=== PATIENT | male | born 2005 | race Two or more races ===

== ENCOUNTER 2024-12-18 17:47 | Emergency (ER) | payer MEDICAID, SELFPAY ==
[2024-12-18 17:48] VITALS: BMI 36.5
[2024-12-18 18:56] VITALS: BP 144/92; PULSE 81; RESP 19; TEMP 36.8; O2SAT 100
--- NOTE | 2024-12-18 19:21 | PD.EDWOUND ---
ED Wound/Laceration-RME/HPI General Chief Complaint: Wound Recheck / Suture Removal Stated Complaint: Staple removal Time Seen by Provider: 12/18/24 18:22 Arrival date/time: 12/18/24 17:47 19-year-old male reports for staple removals from the scalp. Patient states he has been keeping the area clean and dry no purulent discharge no fever no headache no dizziness no blurred vision no ringing in ears. Limitations: no limitations Related Data Previous Rx's ?Medication ?Instructions ?Recorded epinephrine 0.3 mg/0.3 mL See Rx Instructions .Route 04/10/21 injection, auto-injector .COMPLEX #1 ea loratadine 10 mg tablet 10 mg PO QDAY #30 tabs 08/29/22 promethazine-DM 6.25 mg-15 mg/5 mL 5 ml PO Q6H PRN cough #200 mL 08/29/22 oral syrup albuterol sulfate 90 mcg/actuation 1 puff inhalation Q6H PRN 09/04/22 aerosol inhaler (Ventolin HFA) shortness of breath or wheezing #6.7 grams albuterol sulfate 2.5 mg/3 mL 2.5 mg (3 mL) inhalation QID PRN 09/12/22 (0.083 %) solution for nebulization shortness of breath or wheezing #90 mL albuterol sulfate 90 mcg/actuation 2 puff inhalation Q6H PRN 09/12/22 aerosol inhaler shortness of breath or wheezing #8.5 grams diphenhydramine HCl 25 mg capsule 25 mg PO TID PRN allergic reaction 06/29/23 (Allergy Relief (diphenhydramine)) #30 caps epinephrine 0.3 mg/0.3 mL 0.3 ml subcut QDAY PRN 06/29/23 injection, auto-injector (EpiPen hypersensitivity reaction #2 ea 2-Ebenezer) hydrocortisone 0.5 % topical cream 1 applic topical BID PRN itching 06/29/23 #28.4 grams Allergies Allergy/AdvReac Type Severity Reaction Status Date / Time bee venom protein (honey bee) Allergy Severe Swelling Verified 06/28/23 23:19 of the Eye Penicillins Allergy Severe HIVVES Verified 06/28/23 23:19 NSAIDS (Non-Steroidal AdvReac Severe DUE TO Verified 06/28/23 23:19 Anti-Inflamma KIDNEY PROBLEMS Review of Systems Constitutional Constitutional: Denies chills, Denies fever(s) and Denies headache(s) ENT Ears, Nose, Mouth, and Throat: Denies dizziness and Denies headache(s) Integumentary/Breasts Skin/Breast: Denies unusual bruising, Reports wounds and Reports other (No discharge) Neurologic Neurologic: Denies convulsions, Denies dizziness and Denies headache(s) Past Medical History Past Medical History CARDIAC: Negative Cardiac Disorders or Congestive Heart Failure RESPIRATORY: Positive Asthma; Negative Chronic Obstructive Pulmonary Disease (COPD) GENITOURINARY: Positive Genitourinary Disorders; Negative Renal Disease ENDOCRINE: Negative Diabetes Mellitus Type 1 or Diabetes Mellitus Type 2 HEMATOLOGIC: Negative Sickle Cell Disease Social History SMOKING STATUS: Never smoker ED Exam General Limitations: Present no limitations General appearance: Present alert and in no apparent distress Head Head exam: Present atraumatic Eye Eye exam: Present normal appearance, PERRL and EOMI ENT ENT exam: Present normal exam, normal oropharynx and mucous membranes moist Neurological Exam Neurological exam: Present alert, oriented X3 and CN II-XII intact Psychiatric Psychiatric exam: Present normal affect and normal mood Skin Skin exam: Present warm, dry, intact and normal color Course Quality Measures none Vital Signs Vital signs: Vital Signs Temperature 98.2 F 12/18/24 18:56 Pulse Rate 81 12/18/24 18:56 Respiratory Rate 19 12/18/24 18:56 Blood Pressure 144/92 H 12/18/24 18:56 Pulse Oximetry (%) 100 12/18/24 18:56 Oxygen Delivery Method Room Air 12/18/24 18:56 Wound / Laceration Patient data External records reviewed:: None Clinical information provided by:: patient Social determinants that could affect healthcare access:: none Patient has the following chronic illnesses:: none How is presenting disease/condition affected by chronic disease/condition?: no chronic disease Evaluation data The following diagnostics were reviewed and interpreted by me:: other (specify) (none) Lab and/or radiology exams considered but not ordered:: n/a Interpretation Summary: n/a Medications / Prescriptions Medications or Prescriptions considered but not ordered:: none Medication administrations:: none Consultations Consultation(s) initiated? (list below): No Diagnosis Wound Differential Diagnosis: laceration Most likely diagnosis given after review of the tests above:: Counter for suture removal Admission Indicated Admission indicated?: not indicated Admission Request Was there a request for admission?: No Disposition Plan Disposition Plan: Discharge Discharge Attestation Discharge Attestation: The patient and all family members were given an opportunity to ask questions and understood the discharge instructions. Discharge instructions specifically effects, indications for sooner follow up or return to the emergency department, and the expected course of current diagnosis. Patient condition: Stable Discharge Plan Plan Patient Disposition: HOME (Self Care) Prescriptions/Referrals Prescriptions/Med Rec: No Action epinephrine 0.3 mg/0.3 mL auto-injector See Rx Instructions .ROUTE .COMPLEX Qty: 1 0RF Rx Instructions: 0.3 mL subcutaneously x1 as needed for anaphylaxis promethazine-DM 6.25-15 mg/5 mL syrup 5 ml PO Q6H PRN (Reason: cough) Qty: 200 0RF loratadine 10 mg tablet 10 mg PO QDAY Qty: 30 0RF diphenhydramine HCl [Allergy Relief(diphenhydramin)] 25 mg capsule 25 mg PO TID PRN (Reason: allergic reaction) Qty: 30 0RF hydrocortisone 0.5 % cream 1 applic topical BID PRN (Reason: itching) Qty: 28.4 0RF epinephrine [EpiPen 2-Ebenezer] 0.3 mg/0.3 mL auto-injector 0.3 ml subcut QDAY PRN (Reason: hypersensitivity reaction) Qty: 2 0RF albuterol sulfate [Ventolin HFA] 90 mcg/actuation HFA aerosol inhaler 1 puff inhalation Q6H PRN (Reason: shortness of breath or wheezing) Qty: 6.7 0RF albuterol sulfate 90 mcg/actuation HFA aerosol inhaler 2 puff inhalation Q6H PRN (Reason: shortness of breath or wheezing) Qty: 8.5 0RF albuterol sulfate 2.5 mg /3 mL (0.083 %) solution for nebulization 2.5 mg inhalation QID PRN (Reason: shortness of breath or wheezing) Qty: 90 0RF Problem List Clinical Impression: Encounter for removal of farnaz Patient/Caregiver Discharge Instructions Discharge Activity: activity as tolerated Education Materials: ED Stitches/Staple Removal No ... Additional Instructions: Keep area clean and dry Print Language: [place] Stand Alone Forms: [facility] Award Info., Patient Portal Info Letter
== END 2024-12-18 19:40 | disposition home or self-care (01) ==
LOC: SERX 19:31
PROVIDERS: Emergency Provider Emergency Medicine
DX: Z48.02 Encounter for removal of sutures (principal)
CPT/HCPCS: 99281

== ENCOUNTER 2025-01-04 16:59 | Emergency (ER) | payer MEDICAID, SELFPAY ==
[2025-01-04 17:02] VITALS: BMI 36.5
[2025-01-04 17:55] VITALS: BP 142/75; PULSE 72; RESP 18; TEMP 36.9; O2SAT 99
--- NOTE | 2025-01-04 17:57 | XR_ITS ---
Examination: PA lateral chest 2 views TECHNIQUE: Upright PA lateral chest 2 views Exam date and time: January 04, 2025, 1829 hours Comparison January 18, 2023 INDICATIONS: Onset chest pain today. FINDINGS: Normal heart size No pneumonia or pulmonary edema. Intact osseous structures IMPRESSION: No active disease
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
== END 2025-01-04 21:23 | disposition home or self-care (01) ==
PROVIDERS: Emergency Provider Emergency Medicine
DX: S09.90XA Unspecified injury of head, initial encounter (principal); S19.9XXA Unspecified injury of neck, initial encounter; R07.9 Chest pain, unspecified; V89.2XXA Person injured in unspecified motor-vehicle accident, traffic, initial encounter
CPT/HCPCS: 70450; 71046; 72125; 99284

== ENCOUNTER 2025-01-31 10:05 | Emergency (ER) | payer MEDICAID, SELFPAY ==
[2025-01-31 10:14] VITALS: BP 150/83; PULSE 95; RESP 18; TEMP 36.9; O2SAT 98; BMI 37.5
--- NOTE | 2025-01-31 10:22 | XR_ITS ---
Examination: PA lateral chest 2 views TECHNIQUE: Upright PA lateral chest 2 views Exam date and time: January 31, 2025 1041 hours INDICATIONS: Congestion coughing beginning 2 days ago. FINDINGS: Normal heart size. Lungs are clear. The osseous structures are intact IMPRESSION: No active disease
[2025-01-31 11:15] LABS: Strep A Rapid Negative (Negative)
--- NOTE | 2025-01-31 11:15 | EDNOTE_ITS ---
Upper Respiratory Inf. RME/HPI General Chief Complaint: Flu Like Symptoms Stated Complaint: FLU LIKE SYMPTOMS X2 DAYS Time Seen by Provider: 01/31/25 10:20 Arrival date/time: 01/31/25 10:05 19-year-old male presents to the emergency department today for complaints of cough, congestion, sore throat nasal discharge ongoing x 2 days. Limitations: no limitations Related Data Previous Rx's ?Medication ?Instructions ?Recorded epinephrine 0.3 mg/0.3 mL See Rx Instructions .Route 0 04/10/21 injection, auto-injector .COMPLEX #1 ea loratadine 10 mg tablet 10 mg PO QDAY #30 tabs 08/29 promethazine-DM 6.25 mg-15 mg/5 mL 5 ml PO Q6H PRN cou gh #200 mL 08/29/22 oral syrup albuterol sulfate 90 mcg/actuation 1 puff inhalation Q 6H PRN 09/04/22 aerosol inhaler (Ventolin HFA) shortness of breath or wheezing #6.7 grams albuterol sulfate 2.5 mg/3 mL 2.5 mg (3 mL) inhalation QID PRN 09/12/22 (0.083 %) solution for nebulization shortness of breat h or wheezing #90 mL albuterol sulfate 90 mcg/actuation 2 puff inhalation Q 6H PRN 09/12/22 aerosol inhaler shortness of breath or wheez ing #8.5 grams diphenhydramine HCl 25 mg capsule 25 mg PO TID PRN all ergic reaction 06/29/23 (Allergy Relief (diphenhydramine)) #30 caps epinephrine 0.3 mg/0.3 mL 0.3 ml subcut QDAY PRN 06/29 injection, auto-injector (EpiPen hypersensitivity reac tion #2 ea 2-Ebenezer) hydrocortisone 0.5 % topical cream 1 applic topical BI D PRN itching 06/29/23 #28.4 grams albuterol sulfate 90 mcg/actuation 2 puff inhalation Q 6H PRN 01/31/25 aerosol inhaler (Ventolin HFA) shortness of breath or wheezing #8.5 grams benzonatate 100 mg capsule 100 mg PO TID #14 caps 01/10 01/02 ibuprofen 600 mg tablet 600 mg PO Q6H #30 tabs 01/31 Allergies Allergy/AdvReac Type Severity Reaction Status Date / Time bee venom protein (honey bee) Allergy Severe Swelling Verified 01/04/25 17:08 of the Eye Penicillins Allergy Severe HIVVES Verified 01/04/25 17:08 NSAIDS (Non-Steroidal AdvReac Severe DUE TO Verified 01/04/25 17:08 Anti-Inflamma KIDNEY PROBLEMS Review of Systems Review of Systems Systems Reviewed: All systems reviewed, normal except as documented Constitutional Constitutional: Reports system reviewed and no additional complaints, except as documented, Reports body ache(s), Denies fever(s) and Reports headache(s) Eyes Eyes: Reports system reviewed and no additional complaints, except as documented and Denies blurry vision ENT Ears, Nose, Mouth, and Throat: Reports system reviewed and no additional complaints, except as documented, Reports headache(s), Reports nasal congestion and Reports nasal discharge Cardiovascular Cardiovascular: Reports system reviewed and no additional complaints, except as documented, Denies chest pain and Denies dyspnea Respiratory Respiratory: Reports system reviewed and no additional complaints, except as documented, Denies chest congestion, Denies cough and Denies dyspnea Gastrointestinal Gastrointestinal: Reports system reviewed and no additional complaints, except as documented and Denies abdominal pain Integumentary/Breasts Skin/Breast: Reports system reviewed and no additional complaints, except as documented and Denies rash Neurologic Neurologic: Reports system reviewed and no additional complaints, except as documented, Reports as per HPI and Reports headache(s) Past Medical History Past Medical History CARDIAC: Negative Cardiac Disorders or Congestive Heart Failure RESPIRATORY: Positive Asthma; Negative Chronic Obstructive Pulmonary Disease (COPD) GENITOURINARY: Positive Genitourinary Disorders; Negative Renal Disease ENDOCRINE: Negative Diabetes Mellitus Type 1 or Diabetes Mellitus Type 2 HEMATOLOGIC: Negative Sickle Cell Disease Social History SMOKING STATUS: Never smoker ED Exam General Limitations: Present no limitations General appearance: Present alert and in no apparent distress Head Head exam: Present atraumatic Eye Eye exam: Present normal appearance, PERRL and EOMI ENT ENT exam: Present normal exam, normal oropharynx and mucous membranes moist Neck Neck exam: Present normal inspection, full ROM and trachea midline Chest Chest inspection: Present normal inspection and symmetric chest wall rise Respiratory Respiratory exam: Present normal lung sounds bilaterally; Absent respiratory distress, wheezes, stridor, accessory muscle use or prolonged expiratory phase Cardiovascular Cardiovascular exam: Present regular rate, normal rhythm and normal heart sounds; Absent bradycardia, tachycardia or irregular rhythm Abdominal Exam Abdominal exam: Present soft and normal bowel sounds; Absent distention, tenderness or guarding Extremities Exam Extremities exam: Present normal inspection and full ROM Back Exam Back exam: Present normal inspection and full ROM Neurological Exam Neurological exam: Present alert, oriented X3, CN II-XII intact, normal gait and reflexes normal; Absent motor sensory deficit Psychiatric Psychiatric exam: Present normal affect and normal mood Skin Skin exam: Present warm, dry, intact and normal color; Absent rash Course Quality Measures none Orders Category Date Time Status Bedside COVID-19 Antigen Test NOW Care 01/31/25 10:22 Active Bedside Influenza A&B Antigen Test NOW Care 01/31/25 10:22 Completed XR chest 2V Stat Exams 01/31/25 10:22 Completed Strep A Rapid Stat Lab 01/31/25 10:43 Completed Vital Signs Vital signs: Vital Signs Temperature 98.5 F 01/31/25 10:14 Pulse Rate 95 01/31/25 10:14 Respiratory Rate 18 01/31/25 10:14 Blood Pressure 150/83 H 01/31/25 10:14 Pulse Oximetry (%) 98 01/31/25 10:14 Oxygen Delivery Method Room Air 01/31/25 10:14 O2 saturation 98% room air within normal limits Upper Respiratory Infection MDM Narrative MDM Narrative:: 19-year-old male presents to the emergency department today for complaints of cough, congestion, sore throat nasal discharge ongoing x 2 days. On exam patient well-appearing patient does not appear ill or toxic in no acute distress patient is no difficulty breathing no retractions Lungs are clear to auscultation Patient has mild tonsillar erythema no exudate no trismus no hoarseness of voice Chest x-ray obtained per my interpretation no acute pneumonic infiltrates noted Patient checked for flu COVID and strep all of which are negative Symptoms highly consistent with viral illness Patient discharged home in no distress to follow-up with primary care doctor in the next 24 to 48 hours and for any worsening symptoms to return to the ER immediately Patient data External records reviewed:: [facility] previous records Clinical information provided by:: patient Social determinants that could affect healthcare access:: none Patient has the following chronic illnesses:: None How is presenting disease/condition affected by chronic disease/condition?: no chronic disease Evaluation data The following diagnostics were reviewed and interpreted by me:: lab results and radiology exam(s) Lab and/or radiology exams considered but not ordered:: Labs and radiology obtained Interpretation Summary: Reviewed by me Medications / Prescriptions Medications or Prescriptions considered but not ordered:: Given Medication administrations:: Given Consultations Consultation(s) initiated? (list below): No Diagnosis Upper Respiratory Differential Diagnosis: upper respiratory infection, sinusitis, viral infection, bronchitis and influenza Most likely diagnosis given after review of the tests above:: URI Admission Indicated Admission indicated?: not indicated Admission Request Was there a request for admission?: No Disposition Plan Disposition Plan: Discharge Discharge Attestation Discharge Attestation: The patient and all family members were given an opportunity to ask questions and understood the discharge instructions. Discharge instructions specifically effects, indications for sooner follow up or return to the emergency department, and the expected course of current diagnosis. Patient condition: Stable Discharge Plan Plan Patient Disposition: HOME (Self Care) Disposition Comment: Stable Prescriptions/Referrals Prescriptions/Med Rec: New benzonatate 100 mg capsule 100 mg PO TID Qty: 14 0RF ibuprofen 600 mg tablet 600 mg PO Q6H Qty: 30 0RF albuterol sulfate [Ventolin HFA] 90 mcg/actuation HFA aerosol inhaler 2 puff inhalation Q6H PRN (Reason: shortness of breath or wheezing) Qty: 8.5 0RF No Action epinephrine 0.3 mg/0.3 mL auto-injector See Rx Instructions .ROUTE .COMPLEX Qty: 1 0RF Rx Instructions: 0.3 mL subcutaneously x1 as needed for anaphylaxis promethazine-DM 6.25-15 mg/5 mL syrup 5 ml PO Q6H PRN (Reason: cough) Qty: 200 0RF loratadine 10 mg tablet 10 mg PO QDAY Qty: 30 0RF diphenhydramine HCl [Allergy Relief(diphenhydramin)] 25 mg capsule 25 mg PO TID PRN (Reason: allergic reaction) Qty: 30 0RF hydrocortisone 0.5 % cream 1 applic topical BID PRN (Reason: itching) Qty: 28.4 0RF epinephrine [EpiPen 2-Ebenezer] 0.3 mg/0.3 mL auto-injector 0.3 ml subcut QDAY PRN (Reason: hypersensitivity reaction) Qty: 2 0RF albuterol sulfate [Ventolin HFA] 90 mcg/actuation HFA aerosol inhaler 1 puff inhalation Q6H PRN (Reason: shortness of breath or wheezing) Qty: 6.7 0RF albuterol sulfate 90 mcg/actuation HFA aerosol inhaler 2 puff inhalation Q6H PRN (Reason: shortness of breath or wheezing) Qty: 8.5 0RF albuterol sulfate 2.5 mg /3 mL (0.083 %) solution for nebulization 2.5 mg inhalation QID PRN (Reason: shortness of breath or wheezing) Qty: 90 0RF Referrals: Jennifer Kinsey PA-C [Primary Care Provider] - 02/02/25 Problem List Clinical Impression: Upper respiratory infection Patient/Caregiver Discharge Instructions Education Materials: ED URI, Viral, No Abx (Adult) Additional Instructions: Please follow up with your primary care doctor in the next 24-48hrs for any worsening symptoms return here immediately Print Language: Iranian Stand Alone Forms: [employer] Award Info., Work/School Release, Patient Portal Info Letter ERON/NIC Supervising Physician PA/NIC Supervising Physician: Dr navarro
== END 2025-01-31 11:45 | disposition home or self-care (01) ==
PROVIDERS: Nurse Practitioner Primary Care; Emergency Provider Emergency Medicine; PCP Specialist
DX: J06.9 Acute upper respiratory infection, unspecified (principal)
CPT/HCPCS: 71046; 87400; 87651; 87811; 99283

== ENCOUNTER 2025-02-26 13:09 | Emergency (ER) | payer MEDICAID, SELFPAY ==
[2025-02-26 13:10] VITALS: BMI 34.9
[2025-02-26 13:16] VITALS: BP 134/78; PULSE 69; RESP 18; TEMP 37; O2SAT 98
--- NOTE | 2025-02-26 13:22 | EKG_ITS ---
[facility] Test Date: 2025-02-26 Pat Name: MARIA INES TRINIDAD Department: Room: - Gender: Male Certified Coding Specialist: : 2005 Requested By: London Alves Order Number: [id number] Reading MD: London Alves Measurements Intervals [place] Rate: 68 P: 59 KS: 153 QRS: -9 QRSD: 97 T: 12 QT: 352 QTc: 375 Interpretive Statements SINUS RHYTHM WITH SINUS ARRHYTHMIA INCOMPLETE RIGHT BUNDLE BRANCH BLOCK [90+ ms QRS DURATION, TERMINAL R IN V1/V2, 40+ ms S IN I/aVL/V4/V5/V6] VOLTAGE CRITERIA FOR LVH [MEETS CRITERIA IN ONE OF: R(aVL), S(V1), R(V5), R(V5/V6)+S(V1)] No previous ECG available for comparison /store/S0/[id number].pdf
--- NOTE | 2025-02-26 13:23 | PD.EDRME ---
Rapid Medical Screening Exam RME Arrival date/time: 02/26/25 13:09 19-year-old male with no known medical history presents to the emergency room with a chief complaint of a headache, dizziness and lightheadedness x 2 days. I have greeted and performed a focused initial assessment of this patient. A comprehensive ED assessment and evaluation of the patient, analysis of all test results, and completion of the medical decision making process will be conducted by additional ED providers. Chief Complaint: Dizziness Time Seen by Provider: 02/26/25 13:16 Vital signs: Vital Signs Temperature 98.6 F 02/26/25 13:16 Pulse Rate 69 02/26/25 13:16 Respiratory Rate 18 02/26/25 13:16 Blood Pressure 134/78 H 02/26/25 13:16 Pulse Oximetry (%) 98 02/26/25 13:16 Oxygen Delivery Method Room Air 02/26/25 13:16 Vital signs reviewed by provider: Yes
[2025-02-26] MEDS: MECLIZINE HCL 25 MG TABLET 50 MG PO (13:28)
[2025-02-26 13:44] LABS: Basophils # (Auto) 0.1 Thou/mm3 (0.0-0.2); Basophils % (Auto) 1 % (0-2.5); Eosinophils # (Auto) 0.3 Thou/mm3 (0.0-0.5); Eosinophils % (Auto) 3 % (0-10); Hematocrit 44.1 % (41.0-53.0); Hemoglobin 15.9 g/dL (13.5-16.0); Immature Granulocytes % (Auto) 1 % (0-0); Immature Granulocytes Auto 0.14 Thou/mm3 (0.00-0.00); Lymphocytes # (Auto) 3.1 Thou/mm3 (1.0-4.8); Lymphocytes % (Auto) 29 % (10-50); Mean Corpuscular HGB Conc 36.1 g/dl (31.0-37.0); Mean Corpuscular Hemoglobin 29.8 pg (25.0-35.0); Mean Corpuscular Volume 83 fL (80-100); Monocytes # (Auto) 0.9 Thou/mm3 (0.0-0.8); Monocytes % (Auto) 8 % (0-12); Neutrophils # (Auto) 6.2 Thou/mm3 (1.8-7.7); Neutrophils % (Auto) 58 % (37-80); Nucleated Red Blood Cell % 0 /100 WBC (0); Platelet Count 332 Thou/mm3 (140-440); RDW Standard Deviation 37.3 fL (35.1-43.9); Red Blood Count 5.34 Miln/mm3 (4.50-5.90); White Blood Count 10.7 Thou/mm3 (4.5-11.0)
[2025-02-26 14:07] LABS: Alanine Aminotransferase 27 U/L (10-49); Albumin/Globulin Ratio 1.9 (1.2-2.2); Alcohol, Blood Medical < 3.0 mg/dL (0-10.0); Alkaline Phosphatase 116 U/L (46-116); Anion Gap 7 (7-16); Aspartate Amino Transferase 22 U/L (0-34); BUN/Creatinine Ratio 15 Ratio (12-20); Bilirubin,Total 0.3 mg/dL (0.3-1.2); Blood Urea Nitrogen 15 mg/dL (9-23); Calcium 9.5 mg/dL (8.3-10.6); Calcium (Corrected) 9.5 mg/dL (8.5-10.1); Carbon Dioxide 27.3 mMol/L (20.0-31.0); Chloride 101 mMol/L (98-107); Globulin 2.7 gm/dL (2.3-3.5); Glucose 93 mg/dL (74-106); Osmolality,Calculated 270 (275-295); Potassium 4.4 mMol/L (3.4-5.1); Sodium 135 mMol/L (136-145); Total Protein 7.7 gm/dL (5.7-8.2); Troponin I < 0.002 ng/mL (0.0-0.045); eGFR > 60 See Note
[2025-02-26 14:31] LABS: Collection Type, Urine Clean Catch; RBC,Urine 0 /hpf (0-3); Squamous Epithelial Cell,Urine 0 /hpf (0-5)
[2025-02-26 14:52] LABS: Bilirubin,Urine Negative (Negative); Blood,Urine Negative (Negative); Clarity,Urine Clear (Clear/Hazy); Color,Urine Yellow (Lt Yel-Yel); Glucose, Urine Negative (Negative); Ketones,Urine Negative (Negative); Leukocyte Esterase,Urine Negative (Negative); Nitrite,Urine Negative (Negative); Protein,Urine Negative (Neg - Trace); Specific Gravity,Urine 1.028 (1.001-1.035); Urobilinogen,Urine Negative mg/dL (0.0-1.0); WBC,Urine < 1 /hpf (0-5)
[2025-02-26 14:56] LABS: Amphetamine/Methamp Scrn,U Negative (Negative); Barbiturate Screen,Urine Negative (Negative); Benzodiazepines Screen,Urine Negative (Negative); Benzoylecgonine Screen, Ur Negative (Negative); Fentanyl Screen,Urine Negative (Negative); Opiate Screen,Urine Negative (Negative); THC Screen,Urine Negative (Negative)
--- NOTE | 2025-02-26 16:29 | PC.NURSE ---
PT REQUESTING TO LEAVE AMA; PT MADE AWARE THAT PT ASSIGNED TO MAIN ED AND BED IS PENDING AT THIS TIME; PER PT, NO, 'I CAN'T. I DON'T WANT TO WAIT. I WANT TO EAT. THIS RN OFFERED FOOD FOR PT ENCOURAGE PT TO STAY; PT DECLINED AND STATED, NO, I WANNA LEAVE. THIS RN EXPLAINED THE RISKS OF LEAVING AMA; PT SIGNED AMA FORM. PT LEFT AGAINST MEDICAL ADVICE AT THIS TIME.
== END 2025-02-26 16:35 | disposition left against medical advice (07) ==
LOC: SERX 14:49
PROVIDERS: Nurse Practitioner Family; Emergency Provider Emergency Medicine; PCP Specialist
DX: R42 Dizziness and giddiness (principal); R51.9 Headache, unspecified; I49.8 Other specified cardiac arrhythmias; I45.10 Unspecified right bundle-branch block
CPT/HCPCS: 36415; 80053; 80307; 80320; 81001; 84484; 85025; 87086; 93005; 99281; A9270; G0480

== ENCOUNTER 2025-05-24 12:35 | Emergency (ER) | payer MEDICAID, SELFPAY ==
[2025-05-24 13:13] VITALS: BP 125/76; PULSE 81; RESP 20; TEMP 36.8; O2SAT 98; BMI 35.5
--- NOTE | 2025-05-24 13:20 | EDNOTE_ITS ---
ED General RME/HPI General Chief complaint: Nausea/Vomiting/Diarrhea Stated complaint: Vomiting, lightheaded from propane leak Time Seen by Provider: 05/24/25 13:12 Arrival date/time: 05/24/25 12:35 20-year-old male presents the Emergency Department today stating was at work today patient reports he was exposed to some propane/propane leak patient reports he vomited x 1 and became lightheaded patient reports symptoms have resolved. Patient reports no chest pain or shortness of breath and at no point has he had any chest pain or shortness of breath Limitations: no limitations Related Data Previous Rx's ?Medication ?Instructions ?Recorded epinephrine 0.3 mg/0.3 mL See Rx Instructions .Route 0 04/10/21 injection, auto-injector .COMPLEX #1 ea loratadine 10 mg tablet 10 mg PO QDAY #30 tabs 08/29 promethazine-DM 6.25 mg-15 mg/5 mL 5 ml PO Q6H PRN cou gh #200 mL 08/29/22 oral syrup albuterol sulfate 90 mcg/actuation 1 puff inhalation Q 6H PRN 09/04/22 aerosol inhaler (Ventolin HFA) shortness of breath or wheezing #6.7 grams albuterol sulfate 2.5 mg/3 mL 2.5 mg (3 mL) inhalation QID PRN 09/12/22 (0.083 %) solution for nebulization shortness of breat h or wheezing #90 mL albuterol sulfate 90 mcg/actuation 2 puff inhalation Q 6H PRN 09/12/22 aerosol inhaler shortness of breath or wheez ing #8.5 grams diphenhydramine HCl 25 mg capsule 25 mg PO TID PRN all ergic reaction 06/29/23 (Allergy Relief (diphenhydramine)) #30 caps epinephrine 0.3 mg/0.3 mL 0.3 ml subcut QDAY PRN 06/29 injection, auto-injector (EpiPen hypersensitivity reac tion #2 ea 2-Ebenezer) hydrocortisone 0.5 % topical cream 1 applic topical BI D PRN itching 06/29/23 #28.4 grams albuterol sulfate 90 mcg/actuation 2 puff inhalation Q 6H PRN 01/31/25 aerosol inhaler (Ventolin HFA) shortness of breath or wheezing #8.5 grams benzonatate 100 mg capsule 100 mg PO TID #14 caps 01/10 01/02 ibuprofen 600 mg tablet 600 mg PO Q6H #30 tabs 01/31 Allergies Allergy/AdvReac Type Severity Reaction Status Date / Time bee venom protein (honey bee) Allergy Severe Swelling Verified 05/24/25 12:40 of the Eye Penicillins Allergy Severe HIVVES Verified 05/24/25 12:40 NSAIDS (Non-Steroidal AdvReac Severe DUE TO Verified 05/24/25 12:40 Anti-Inflamma KIDNEY PROBLEMS Review of Systems Review of Systems Systems Reviewed: All systems reviewed, normal except as documented Constitutional Constitutional: Reports system reviewed and no additional complaints, except as documented, Denies fever(s) and Denies headache(s) Eyes Eyes: Reports system reviewed and no additional complaints, except as documented and Denies blurry vision ENT Ears, Nose, Mouth, and Throat: Reports system reviewed and no additional complaints, except as documented, Denies headache(s), Denies nasal congestion and Denies nasal discharge Cardiovascular Cardiovascular: Reports system reviewed and no additional complaints, except as documented, Denies chest pain and Denies dyspnea Respiratory Respiratory: Reports system reviewed and no additional complaints, except as documented, Denies chest congestion, Denies cough and Denies dyspnea Gastrointestinal Gastrointestinal: Reports system reviewed and no additional complaints, except as documented, Denies abdominal pain, Reports nausea and Reports vomiting Integumentary/Breasts Skin/Breast: Reports system reviewed and no additional complaints, except as documented and Denies rash Neurologic Neurologic: Reports system reviewed and no additional complaints, except as documented, Reports as per HPI and Denies headache(s) Past Medical History Past Medical History CARDIAC: Negative Cardiac Disorders or Congestive Heart Failure RESPIRATORY: Positive Asthma; Negative Chronic Obstructive Pulmonary Disease (COPD) GENITOURINARY: Positive Genitourinary Disorders; Negative Renal Disease ENDOCRINE: Negative Diabetes Mellitus Type 1 or Diabetes Mellitus Type 2 HEMATOLOGIC: Negative Sickle Cell Disease Social History SMOKING STATUS: Former smoker ED Exam General Limitations: Present no limitations General appearance: Present alert and in no apparent distress Head Head exam: Present atraumatic Eye Eye exam: Present normal appearance, PERRL and EOMI ENT ENT exam: Present normal exam, normal oropharynx and mucous membranes moist Neck Neck exam: Present normal inspection, full ROM and trachea midline Chest Chest inspection: Present normal inspection and symmetric chest wall rise Respiratory Respiratory exam: Present normal lung sounds bilaterally Cardiovascular Cardiovascular exam: Present regular rate, normal rhythm and normal heart sounds Abdominal Exam Abdominal exam: Present soft and normal bowel sounds Extremities Exam Extremities exam: Present normal inspection and full ROM Back Exam Back exam: Present normal inspection and full ROM Neurological Exam Neurological exam: Present alert, oriented X3 and CN II-XII intact Psychiatric Psychiatric exam: Present normal affect and normal mood Skin Skin exam: Present warm, dry, intact and normal color Course Quality Measures none Vital Signs Vital signs: Vital Signs Temperature 98.2 F 05/24/25 13:13 Pulse Rate 81 05/24/25 13:13 Respiratory Rate 20 05/24/25 13:13 Blood Pressure 125/76 05/24/25 13:13 Pulse Oximetry (%) 98 05/24/25 13:13 Oxygen Delivery Method Room Air 05/24/25 13:13 O2 saturation 98% r.a wnl Discharge Plan Plan Patient Disposition: HOME (Self Care) Discharge Disposition comment: Stable Prescriptions/Referrals Prescriptions/Med Rec: No Action epinephrine 0.3 mg/0.3 mL auto-injector See Rx Instructions .ROUTE .COMPLEX Qty: 1 0RF Rx Instructions: 0.3 mL subcutaneously x1 as needed for anaphylaxis promethazine-DM 6.25-15 mg/5 mL syrup 5 ml PO Q6H PRN (Reason: cough) Qty: 200 0RF loratadine 10 mg tablet 10 mg PO QDAY Qty: 30 0RF diphenhydramine HCl [Allergy Relief(diphenhydramin)] 25 mg capsule 25 mg PO TID PRN (Reason: allergic reaction) Qty: 30 0RF hydrocortisone 0.5 % cream 1 applic topical BID PRN (Reason: itching) Qty: 28.4 0RF epinephrine [EpiPen 2-Ebenezer] 0.3 mg/0.3 mL auto-injector 0.3 ml subcut QDAY PRN (Reason: hypersensitivity reaction) Qty: 2 0RF albuterol sulfate [Ventolin HFA] 90 mcg/actuation HFA aerosol inhaler 1 puff inhalation Q6H PRN (Reason: shortness of breath or wheezing) Qty: 6.7 0RF albuterol sulfate 90 mcg/actuation HFA aerosol inhaler 2 puff inhalation Q6H PRN (Reason: shortness of breath or wheezing) Qty: 8.5 0RF albuterol sulfate 2.5 mg /3 mL (0.083 %) solution for nebulization 2.5 mg inhalation QID PRN (Reason: shortness of breath or wheezing) Qty: 90 0RF benzonatate 100 mg capsule 100 mg PO TID Qty: 14 0RF ibuprofen 600 mg tablet 600 mg PO Q6H Qty: 30 0RF albuterol sulfate [Ventolin HFA] 90 mcg/actuation HFA aerosol inhaler 2 puff inhalation Q6H PRN (Reason: shortness of breath or wheezing) Qty: 8.5 0RF Problem List Clinical Impression: Inhalation of gaseous substance Patient/Caregiver Discharge Instructions Education Materials: ED Chemical Inhalation Additional Instructions: Please follow up with your primary care doctor in the next 24-48hrs for any worsening symptoms return here immediately Print Language: Pakistani Stand Alone Forms: Marbella Award Info., Work/School Release, Patient Portal Info Letter PA/PENSION FUND MANAGER Supervising Physician PA/PENSION FUND MANAGER Supervising Physician: Dr. vincent [facility] Narrative MDM hospital course: 20-year-old male presents the Emergency Department today stating was at work today patient reports he was exposed to some propane/propane leak patient reports he vomited x 1 and became lightheaded patient reports symptoms have resolved. Patient reports no chest pain or shortness of breath and at no point has he had any chest pain or shortness of breath On exam patient well-appearing patient does not appear ill or toxic no acute distress Based on symptomatology symptoms are consistent with nontoxic exposure As patient reports symptoms have been proved significantly patient is hemodynamically stable patient be discharged at this time Explained to the patient if his symptoms persist or worsen patient return for reevaluation Clinical Information Provided by patient Medical Records Reviewed None Meds/Rx Considered, not Ordered None Labs/Rad/Tests considered, not Ordered None Chronic Illness/Social Conditions which may negatively complicate care or outcome(s)-explain: None or not applicable EKG EKG not done Lab Interpretation Labs: none Imaging Imaging interpretation: none Medication Administration(s) none Diagnosis Differential diagnosis: Toxic exposure, nontoxic exposure, dizziness Most likely dx, and/or detailed dx discussion: Nontoxic exposure Dispositon Disposition: Discharge Home
== END 2025-05-24 13:30 | disposition home or self-care (01) ==
LOC: SERX 13:31
PROVIDERS: Emergency Provider Family Medicine
DX: T59.891A Toxic effect of other specified gases, fumes and vapors, accidental (unintentional), initial encounter (principal); R42 Dizziness and giddiness
CPT/HCPCS: 99282

== ENCOUNTER 2025-10-02 11:02 | Emergency (ER) | payer MEDICAID, SELFPAY ==
--- NOTE | 2025-10-02 12:07 | PC.NURSE ---
called pt back to e to be traiged. pt did not answer at this time
--- NOTE | 2025-10-02 12:14 | PC.NURSE ---
NO ANSWER WHEN CALLED FROM [facility]
--- NOTE | 2025-10-02 13:10 | PC.NURSE ---
no answer from lobby
== END 2025-10-02 16:28 | disposition left against medical advice (07) ==
PROVIDERS: Emergency Provider Family Medicine
DX: Z53.21 Procedure and treatment not carried out due to patient leaving prior to being seen by health care provider (principal)
CPT/HCPCS: 99281

== ENCOUNTER 2025-10-05 14:12 | Emergency (ER) | payer MEDICAID, SELFPAY ==
[2025-10-05 14:13] VITALS: BMI 38.0
[2025-10-05 14:40] VITALS: BP 144/87; PULSE 85; RESP 20; TEMP 37.5; O2SAT 98
--- NOTE | 2025-10-05 14:45 | XR_ITS ---
Upright PA chest film 10/05/2025 at 2:54 p.m. Comparison study 01/31/2025 INDICATION: Fever for 2 days and cough and shortness of breath for 2 weeks FINDINGS: Heart mediastinum lungs and pleural space are all clear and normal. No bony abnormalities are seen IMPRESSION: 1. Normal chest
--- NOTE | 2025-10-05 14:46 | PD.EDURI ---
Upper Respiratory Inf. RME/HPI General Chief Complaint: Flu Like Symptoms Stated Complaint: COUGH X2 WEEKS Time Seen by Provider: 10/05/25 14:43 Source: patient Arrival date/time: 10/05/25 14:12 20-year-old male with no known medical history presents to the emergency room with a chief complaint of cough x 2 weeks Mode of arrival: ambulatory Limitations: no limitations Related Data Previous Rx's ?Medication ?Instructions ?Recorded epinephrine 0.3 mg/0.3 mL See Rx Instructions .Route 04/10/21 injection, auto-injector .COMPLEX #1 ea loratadine 10 mg tablet 10 mg PO QDAY #30 tabs 08/29/22 promethazine-DM 6.25 mg-15 mg/5 mL 5 ml PO Q6H PRN cough #200 mL 08/29/22 oral syrup albuterol sulfate 90 mcg/actuation 1 puff inhalation Q6H PRN 09/04/22 aerosol inhaler (Ventolin HFA) shortness of breath or wheezing #6.7 grams albuterol sulfate 2.5 mg/3 mL 2.5 mg (3 mL) inhalation QID PRN 09/12/22 (0.083 %) solution for nebulization shortness of breath or wheezing #90 mL albuterol sulfate 90 mcg/actuation 2 puff inhalation Q6H PRN 09/12/22 aerosol inhaler shortness of breath or wheezing #8.5 grams diphenhydramine HCl 25 mg capsule 25 mg PO TID PRN allergic reaction 06/29/23 (Allergy Relief (diphenhydramine)) #30 caps epinephrine 0.3 mg/0.3 mL 0.3 ml subcut QDAY PRN 06/29/23 injection, auto-injector (EpiPen hypersensitivity reaction #2 ea 2-Ebenezer) hydrocortisone 0.5 % topical cream 1 applic topical BID PRN itching 06/29/23 #28.4 grams albuterol sulfate 90 mcg/actuation 2 puff inhalation Q6H PRN 01/31/25 aerosol inhaler (Ventolin HFA) shortness of breath or wheezing #8.5 grams benzonatate 100 mg capsule 100 mg PO TID #14 caps 01/31/25 ibuprofen 600 mg tablet 600 mg PO Q6H #30 tabs 01/31/25 benzonatate 100 mg capsule 100 mg PO BID PRN cough #14 caps 10/05/25 Allergies Allergy/AdvReac Type Severity Reaction Status Date / Time bee venom protein (honey bee) Allergy Severe Swelling Verified 10/05/25 14:15 of the Eye Penicillins Allergy Severe HIVVES Verified 10/05/25 14:15 NSAIDS (Non-Steroidal AdvReac Severe DUE TO Verified 10/05/25 14:15 Anti-Inflamma KIDNEY PROBLEMS Review of Systems Review of Systems Systems Reviewed: All systems reviewed, normal except as documented Constitutional Constitutional: Reports system reviewed and no additional complaints, except as documented, Denies fatigue, Denies fever(s), Denies headache(s) and Denies weakness Eyes Eyes: Reports system reviewed and no additional complaints, except as documented, Denies blurry vision and Denies change in vision ENT Ears, Nose, Mouth, and Throat: Reports system reviewed and no additional complaints, except as documented, Denies otalgia, Denies headache(s), Denies nasal congestion, Denies throat swelling and Denies vertigo Cardiovascular Cardiovascular: Reports system reviewed and no additional complaints, except as documented, Denies chest pain, Reports dyspnea and Denies dyspnea on exertion Respiratory Respiratory: Reports system reviewed and no additional complaints, except as documented, Denies chest congestion, Reports cough, Reports dyspnea, Denies dyspnea on exertion and Denies wheezing Gastrointestinal Gastrointestinal: Reports system reviewed and no additional complaints, except as documented, Denies abdominal pain, Denies cramping, Denies nausea and Denies vomiting Genitourinary Genitourinary: Reports system reviewed and no additional complaints, except as documented, Denies dysuria and Denies hematuria Musculoskeletal Musculoskeletal: Reports system reviewed and no additional complaints, except as documented and Denies back pain Integumentary/Breasts Skin/Breast: Reports system reviewed and no additional complaints, except as documented and Denies wounds Neurologic Neurologic: Reports system reviewed and no additional complaints, except as documented, Denies confusion, Denies headache(s), Denies lack of coordination, Denies vertigo and Denies weakness Psychiatric Psychiatric: Reports system reviewed and no additional complaints, except as documented, Denies anxiety, Denies confusion, Denies depression, Denies paranoia, Denies suicidal ideation and Denies tactile hallucinations Endocrine Endocrine: Reports system reviewed and no additional complaints, except as documented and Denies fatigue Hematologic/Lymphatic Hematologic/Lymphatic: Reports system reviewed and no additional complaints, except as documented and Denies lymphadenopathy Allergic/Immunologic Allergic/Immunologic: Reports system reviewed and no additional complaints, except as documented, Denies throat swelling, Denies urticaria and Denies wheezing Past Medical History Past Medical History CARDIAC: Negative Cardiac Disorders or Congestive Heart Failure RESPIRATORY: Positive Asthma; Negative Chronic Obstructive Pulmonary Disease (COPD) GENITOURINARY: Positive Genitourinary Disorders; Negative Renal Disease ENDOCRINE: Negative Diabetes Mellitus Type 1 or Diabetes Mellitus Type 2 HEMATOLOGIC: Negative Sickle Cell Disease Social History SMOKING STATUS: Never smoker ED Exam General Limitations: Present no limitations General appearance: Present alert and in no apparent distress Head Head exam: Present atraumatic Eye Eye exam: Present normal appearance, PERRL and EOMI ENT ENT exam: Present normal exam, normal oropharynx and mucous membranes moist Neck Neck exam: Present normal inspection, full ROM and trachea midline Chest Chest inspection: Present normal inspection and symmetric chest wall rise Respiratory Respiratory exam: Present normal lung sounds bilaterally; Absent respiratory distress, wheezes, stridor, accessory muscle use or prolonged expiratory phase Cardiovascular Cardiovascular exam: Present regular rate, normal rhythm and normal heart sounds Abdominal Exam Abdominal exam: Present soft and normal bowel sounds; Absent tenderness Extremities Exam Extremities exam: Present normal inspection and full ROM Back Exam Back exam: Present normal inspection and full ROM Neurological Exam Neurological exam: Present alert, oriented X3 and CN II-XII intact Psychiatric Psychiatric exam: Present normal affect and normal mood Skin Skin exam: Present warm, dry, intact and normal color Course Quality Measures none Orders Category Date Time Status XR chest 1V portable Stat Exams 10/05/25 14:45 Completed Vital Signs Vital signs: Vital Signs Temperature 99.5 F 10/05/25 14:40 Pulse Rate 85 10/05/25 14:40 Respiratory Rate 20 10/05/25 14:40 Blood Pressure 144/87 H 10/05/25 14:40 Pulse Oximetry (%) 98 10/05/25 14:40 Oxygen Delivery Method Room Air 10/05/25 14:40 Upper Respiratory Infection MDM Narrative MDM Narrative:: 20-year-old male with no known medical history presents to the emergency room with a chief complaint of cough x 2 weeks Patient is hemodynamically stable and in no apparent distress Physical examination shows clear bilateral lung sounds there is no wheezing there is no abnormal breath sounds Patient is not febrile he is not tachycardic not tachypneic and his O2 saturation is 98% on room air Chest x-ray was completed and was negative for any acute findings Patient was discharged and educated to follow-up with primary care provider in the next 24 to 48 hours and return to the emergency room for any evidence of worsening signs or symptoms Patient data External records reviewed:: [facility] previous records Clinical information provided by:: patient Social determinants that could affect healthcare access:: none Patient has the following chronic illnesses:: No chronic illness How is presenting disease/condition affected by chronic disease/condition?: no chronic disease Evaluation data The following diagnostics were reviewed and interpreted by me:: lab results and radiology exam(s) Lab and/or radiology exams considered but not ordered:: Labs radiology exams considered and ordered Interpretation Summary: Chest [id number]: Heart mediastinum lungs and pleural space are all clear and normal. No bony abnormalities are seen IMPRESSION: 1. Normal chest Medications / Prescriptions Medications or Prescriptions considered but not ordered:: No pneumonic infiltrates Medication administrations:: No pneumonic infiltrates Consultations Consultation(s) initiated? (list below): No Diagnosis Upper Respiratory Differential Diagnosis: upper respiratory infection, viral infection, bronchitis, influenza and other (Community-acquired pneumonia) Most likely diagnosis given after review of the tests above:: Upper respiratory infection Admission Indicated Admission indicated?: not indicated Admission Request Was there a request for admission?: No Disposition Plan Disposition Plan: Discharge Discharge Attestation Discharge Attestation: The patient and all family members were given an opportunity to ask questions and understood the discharge instructions. Discharge instructions specifically effects, indications for sooner follow up or return to the emergency department, and the expected course of current diagnosis. Patient condition: Stable Discharge Plan Plan Patient Disposition: HOME (Self Care) Prescriptions/Referrals Prescriptions/Med Rec: New benzonatate 100 mg capsule 100 mg PO BID PRN (Reason: cough) Qty: 14 0RF No Action epinephrine 0.3 mg/0.3 mL auto-injector See Rx Instructions .ROUTE .COMPLEX Qty: 1 0RF Rx Instructions: 0.3 mL subcutaneously x1 as needed for anaphylaxis promethazine-DM 6.25-15 mg/5 mL syrup 5 ml PO Q6H PRN (Reason: cough) Qty: 200 0RF loratadine 10 mg tablet 10 mg PO QDAY Qty: 30 0RF diphenhydramine HCl [Allergy Relief(diphenhydramin)] 25 mg capsule 25 mg PO TID PRN (Reason: allergic reaction) Qty: 30 0RF hydrocortisone 0.5 % cream 1 applic topical BID PRN (Reason: itching) Qty: 28.4 0RF epinephrine [EpiPen 2-Ebenezer] 0.3 mg/0.3 mL auto-injector 0.3 ml subcut QDAY PRN (Reason: hypersensitivity reaction) Qty: 2 0RF albuterol sulfate [Ventolin HFA] 90 mcg/actuation HFA aerosol inhaler 1 puff inhalation Q6H PRN (Reason: shortness of breath or wheezing) Qty: 6.7 0RF albuterol sulfate 90 mcg/actuation HFA aerosol inhaler 2 puff inhalation Q6H PRN (Reason: shortness of breath or wheezing) Qty: 8.5 0RF albuterol sulfate 2.5 mg /3 mL (0.083 %) solution for nebulization 2.5 mg inhalation QID PRN (Reason: shortness of breath or wheezing) Qty: 90 0RF benzonatate 100 mg capsule 100 mg PO TID Qty: 14 0RF ibuprofen 600 mg tablet 600 mg PO Q6H Qty: 30 0RF albuterol sulfate [Ventolin HFA] 90 mcg/actuation HFA aerosol inhaler 2 puff inhalation Q6H PRN (Reason: shortness of breath or wheezing) Qty: 8.5 0RF Referrals: Jennifer Kinsey PA-C [Primary Care Provider] - In 1 week Problem List Clinical Impression: Upper respiratory infection Patient/Caregiver Discharge Instructions Education Materials: ED URI, Viral, No Abx (Adult) Additional Instructions: Please follow-up with your primary care provider in the next 24 to 48 hours Chest x-ray was completed and was negative for any pneumonia For any evidence of worsening signs or symptoms return the emergency room immediately Print Language: Latvian Stand Alone Forms: [place] Award Info., Work/School Release, Patient Portal Info Letter ERON/NIC Supervising Physician ERON/NIC Supervising Physician: Dr. Quezada
== END 2025-10-05 16:19 | disposition home or self-care (01) ==
PROVIDERS: Emergency Provider Emergency Medicine; PCP Specialist
DX: J06.9 Acute upper respiratory infection, unspecified (principal)
CPT/HCPCS: 71045; 99282